=== PATIENT | male | born 1975 | race Two or more races ===

== ENCOUNTER → 2020-08-05 | Outpatient (CLI) | payer BC ==
[~2020-08-05] MED LIST: ZOLPIDEM 5 MG TABLET. PO ONE
--- NOTE | 2020-08-06 09:51 | SLEEP ---
DATE OF STUDY: 08/05/2020 ATTENDING PHYSICIAN: Dr. June Dhillon. REFERRING PHYSICIAN: Pauline Musa M.D. INDICATION: The patient is 45 years old who weighs 330 pounds with a BMI of 50. The patient's Charlotte score was 10. The patient underwent split night study performed at [facility]. During the night study, the patient spent 480 minutes in bed and slept for 378 minutes with a sleep efficiency of 79%. Sleep latency was 71 minutes with a REM latency of 182 minutes. Sleep architecture showed increased stage 1 sleep, normal stage 2 sleep, increased slow wave, and slightly reduced REM sleep, which was 16% of the total sleep time. During the initial diagnostic portion of the study, the patient slept for 60 minutes. During that time, there were 47 obstructive apneas, 26 mixed apneas, no central apneas, and 27 hypopneas. The patient's AHI was 102 per hour with a supine AHI 102 per hour. REM sleep was not seen during the diagnostic portion. EKG monitoring revealed normal sinus rhythm, average heart rate 69 beats per minute, no sustained arrhythmias observed. Occasional PACs seen. No clinically significant PLM seen. Nocturnal oximetry study revealed an average oxygen saturation of 95% with lowest of 78%. 13% of time oxygen saturation remained between 80% and 89%. The patient met the criteria for CPAP initiation. It was started at 9 cm of water as the patient was unable to tolerate lower pressure. The pressure was titrated up to 19 cm water. The patient's sleep apnea significantly improved at that pressure. The patient slept for 50 minutes. The patient has minimal supine sleep, but no REM sleep at the final pressure. The patient's AHI was 8 per hour and oxygen saturation remained above 90%. The patient used medium-sized nasal pillows. IMPRESSION: 1. Severe obstructive sleep apnea at an apnea hypopnea index of 102 per hour. 2. Nocturnal hypoxia secondary to obstructive sleep apnea, but resolved with CPAP. 3. No clinically significant periodic limb movements. RECOMMENDATIONS: 1. The patient had significant resolution of sleep apnea at a CPAP pressure of 19 cm of water with an AHI of 8 per hour. I would recommend CPAP at 20 cm of water should be used on a nightly basis to make sure AHI remains less than 5 per hour. 2. Follow up in 4-6 weeks to assess compliance with CPAP and to document clinical improvement. 3. Weight loss is strongly advised. 4. Avoid [employer] depressants. 5. Cautioned regarding driving until symptoms of sleep apnea resolve with the use of CPAP. 6. If the patient's AHI on followup download data remains persistently more than 10 per hour, then the patient can be tried on BiPAP at a maximum IPAP pressure of 22 and a minimum EPAP pressure of 16 with pressure support of 4. JENNYFER HUTCHINSON MD DR: EMMA/kailash JOB#: [id number] / [id number]
== END ==
LOC: SLPLAB 19:12
PROVIDERS: ATTEND Internal Medicine Pulmonary Disease
DX: G47.33 Obstructive sleep apnea (adult) (pediatric) (principal)
CPT/HCPCS: 95810